=== PATIENT | female | born 1970 | race Caucasian/White ===

== ENCOUNTER → 2024-03-14 06:48 | Outpatient (REF) | payer OTHER, SELFPAY ==
[2024-03-14 07:55] LABS: ALT (SGPT) 17 U/L (0-35); AST (SGOT) 23 U/L (14-36); Albumin 4.3 g/dl (3.5-5.0); Alkaline Phosphatase 91 U/L (38-126); Blood Urea Nitrogen 17 mg/dl (7-17); Calcium 8.9 mg/dl (8.4-10.2); Carbon Dioxide 27 mmol/L (22-30); Chloride 104 mmol/L (98-107); Glucose 107 mg/dl (70-99); HDL Cholesterol 80 mg/dl; Iron 56 ug/dl (37-170); LDL Cholesterol, Calculated 81 mg/dl; Potassium 4.5 mmol/L (3.5-5.1); Sodium 139 mmol/L (135-145); Total Bilirubin 0.5 mg/dl (0.2-1.3); Total Cholesterol 175 mg/dl (50-199); Total Protein 6.7 g/dl (6.3-8.2); Triglyceride 72 mg/dl (10-149); Very Low Density Lipoprotein 14 mg/dl (0-30); eGFR > 60.00
[2024-03-14 07:58] LABS: % Basophils 0.7 % (0-2); % Eosinophils 4.1 % (0-6); % Immature Granulocytes 0.2 % (0-0.5); % Lymphocytes 34.6 % (20.5-51.1); % Monocytes 7.1 % (1.7-9.3); % Neutrophils 53.3 % (42.2-75.2); Absolute Eosinophils 0.2 10^3/uL (0-0.7); Absolute Lymphocytes 1.9 10^3/uL (1.2-3.4); Absolute Monocytes 0.4 10^3/uL (0.1-0.6); Absolute Neutrophils 2.8 10^3/uL (1.4-6.5); Hematocrit 35.9 % (37.0-47.0); Hemoglobin 10.8 g/dL (12.0-16.0); Mean Corp Hgb Conc. 30.1 g/dL (33.0-37.0); Mean Corpuscular Volume 73.3 fL (81.0-99.0); Mean Platelet Volume 9.6 fL (7.4-10.4); Nucleated Red Blood Cells % 0 %; Platelet Count 361 10^3/uL (130-400); Red Cell Dist. Width 15.5 % (11.5-14.5); White Blood Cell Count 5.3 10^3/uL (4.8-10.8)
[2024-03-14 08:04] LABS: Percent Saturation 12 % (20-50); Total Iron Binding Capacity 457 ug/dl (265-497)
[2024-03-14 08:10] LABS: Vitamin D, 25-OH*** 14.5 ng/mL (30-80)
[2024-03-14 08:24] LABS: TSH Reflex To Free T4 2.26 uIU/ml (0.47-4.68)
[2024-03-14 08:43] LABS: Vitamin B12 233 pg/ml (239-931)
[2024-03-14 09:51] LABS: Glycohemoglobin (HgbA1c) 5.9 % (4.0-5.6)
== END ==
LOC: REG 06:48
PROVIDERS: ATTENDING PHYSICIAN Nurse Practitioner Adult Health
DX: Z98.84 Bariatric surgery status (principal); E55.9 Vitamin D deficiency, unspecified; Z13.29 Encounter for screening for other suspected endocrine disorder; Z76.89 Persons encountering health services in other specified circumstances; Z13.220 Encounter for screening for lipoid disorders; R73.09 Other abnormal glucose
CPT/HCPCS: 36415; 80053; 80061; 82306; 82607; 83036; 83540; 83550; 84443; 85025